=== PATIENT | male | born 2000 | race Caucasian/White ===

== ENCOUNTER 2020-01-07 17:05 | Emergency (ER) | payer OTHER ==
[~2020-01-07] VITALS: Ht 165.1 cm; Wt 47.6 kg
--- OUTSIDE RECORDS SUMMARY | ~2020-01-07 | XMS | Encounter Summary ---
Demographics + + + | Address | [address] | | | [place] [address] | + + + | Home Phone | | + + + | Preferred Language | Unknown | + + + | Marital Status | Single | + + + | Adventist Affiliation | NRP | + + + | Race | White | + + + | Ethnic Group | Not or | + + + Author + + + | Author | [facility] | + + + | Organization | [facility] | + + + | Address | [...] Team Providers + +------+ + | Care Home Health Clinician Name | Role | Phone | + +------+ + | Rich Valenzuela MD | PCP | | + +------+ + Reason for Visit + + + | Reason | Comments | + + + | Care Coordination | PA submitted for Miralax and ranitidine | + + + Encounter Details +--------+ + + + + | Date | Type | Department | Care Team | Description | +--------+ + + + + | 02/11/ | Documentati | Pediatric | Chandrika Owen MD | Care Coordination | | 2015 | on | Gastroenterology at | [address] [facility] | (PA submitted for | | | | Carl | [address] [place], | Miralax and | | | | [facility] | [place] [address] | ranitidine) | | | | [address] | [phone] | | | | | Carl | | | | | | [facility], | | | | | | [address] [place] [address] | | | | | | [place], [place] | | | | | | [address] | | | | | | [phone] | | | +--------+ + + + [...]
--- OUTSIDE RECORDS SUMMARY | ~2020-01-07 | XMS | Clinical Summary ---
Demographics + + + | Address | [address] | | | [place] [address] | + + + | Home Phone | | + + + | Preferred Language | Unknown | + + + | Marital Status | Single | + + + | Jew Affiliation | NRP | + + + | Race | White | + + + | Ethnic Group | Not or | + + + Author + + + | Author | [facility] | + + + | Organization | [facility] | + + + | Address | Unknown | + + + | Phone | Unavailable | + + + Support + + +---------+ + | Name | Relationship | Address | Phone | + + +---------+ + | Kirby Forde | ECON | Unknown | | + + +---------+ + | Marvin | ECON | Unknown | | + + +---------+ + Care Team Providers + +------+ + | Care Machining Engineer Name | Role | Phone | + +------+ + | Rich Valenzuela MD | PCP | | + +------+ + Source Comments SORAYA is fully live on both EpicCare Ambulatory and EpicCare InPatient.[facility] Allergies + + + + + + | Active Allergy | Reactions | Severity | Noted | Comments | | | | | Date | | + + + + + + | Hymenoptera | Edema | | 02/11/20 | | | Allergenic Extract | | | 15 | | + + + + + + Medications + + + +---------+------+------+-------+ | Medication | Sig | Dispensed | Refills | Star | End | Statu | | | | | | t | Date | s | | | | | | Date | | | + + + +---------+------+------+-------+ | naproxen 500 mg | Take 500 mg by mouth | | 0 | | | Activ | | oral tablet | two times daily. | | | | | e | + + + +---------+------+------+-------+ | | Take by mouth. | | 0 | | | Activ | | ASPIRIN/ACETAMINOPHE | | | | | | e | | N/CAFFEINE (EXCEDRIN | | | | | | | | MIGRAINE ORAL) | | | | | | | + + + +---------+------+------+-------+ | melatonin 3 mg | Take by mouth once | | 0 | | | Activ | | oral tablet | daily at bedtime. | | | | | e | + + + +---------+------+------+-------+ | Ranitidine HCl 150 | Take 1 capsule by | 62 | 3 | 08/0 | | Activ | | mg oral | mouth two times | capsule | | 3/20 | | e | | capsuleIndications: | daily. Indications: | | | 15 | | | | heartburn | HEARTBURN | | | | | | + + + +---------+------+------+-------+ | polyethylene | Take 17 g by mouth | 255 g | 5 | 08/0 | | Activ | | glycol 17 gram/dose | once daily. Ok to | | | 3/20 | | e | | oral powder | put in 8-10 oz of | | | 15 | | | | | Gatorade | | | | | | + + + +---------+------+------+-------+ Active Problems + + + | Problem | Noted Date | + + + | Periumbilical abdominal pain | 02/10/2015 | + + + + + | Overview: ICD10 | + + + + + | Abdominal pain, epigastric | 02/10/2015 | + + + | Abnormal weight loss | 02/10/2015 | + + + Family History + + +------+ + | Medical History | Relation | Name | Comments | + + +------+ + | GI | Mother | | constipation | + + +------+ + | Heart Disease | | | grandparents | + + +------+ + + +------+--------+ + | Relation | Name | Status | Comments | + +------+--------+ + | Mother | | | | + +------+--------+ + Social History + +-------+ +--------+------+ | [...] recent travel history available. | + + Last Filed Vital Signs + + + + + | Vital Sign | Reading | Time Taken | Comments | + + + + + | Blood Pressure | 123/60 | 02/10/2015 1:32 PM | | | | | PDT | | + + + + + | Pulse | 78 | 02/10/2015 1:32 PM | | | | | PDT | | + + + + + | Temperature | - | - | | + + + + + | Respiratory Rate | - | - | | + + + + + | Oxygen Saturation | - | - | | + + + + + | Inhaled Oxygen | - | - | | | Concentration | | | | + + + + + | Weight | 46.9 kg (103 lb 6.3 | 02/10/2015 1:32 PM | | | | oz) | PDT | | + + + + + | Height | 163 cm (5' 4.17") | 02/10/2015 1:32 PM | | | | | PDT | | + + + + + | Body Mass Index | 17.65 | 02/10/2015 1:32 PM | | | | | PDT | | + + + + + Plan of Treatment + + + + + | Health Maintenance | Due Date | Last Done | Comments | + + + + + | Influenza (Flu) | | | | | vaccination (#1) | 9 | | | + + + + + | Pneumococcal | Aged Out | | No longer eligible | | vaccination | | | based on patient's | | | | | age to complete this | | | | | topic | + + + + + Results Not on filefrom Last 3 Months Insurance + +--------+ +--------+ + +--------+ | Payer | Benefi | Subscriber | Effect | Phone | Address | Type | | | t Plan | ID | sergo | | | | | | / | | Dates | | | | | | Group | | | | | | + +--------+ +--------+ + +--------+ | BLUE CROSS BLUE | BCBS | xxxxxxxxxxx | 07/11/19 | [phone] | [address] | PPO | | SHIELD | OUT OF | xxx | 14-Pre | 8 | [address] | | | | STATE | | sent | | [place], | | | | | | | | [place] | | | | | | | | [address] | | + +--------+ +--------+ + +--------+ | MEDICAID [place] | OHP | [id number] | 12/16/19 | [phone] | [address] | Medica | | | PLUS | | 14-Pre | 6 | [id number] | id | | | OPEN | | sent | | [place], [place] | | | | CARD | | | | [id number] | | + +--------+ +--------+ + +--------+ + +--------+ +--------+ + + | Guarantor Name | Accoun | Relation to | Date | Phone | Billing Address | | | t Type | Patient | of | | | | | | | | | | + +--------+ +--------+ + + | KIRBY FORDE | Person | Father | [birth year] | | | al/Fam | | 1952 | [phone] | [address] [place] | | | padmini | | | 6 (Home) | [phone] | + +--------+ +--------+ + +
--- OUTSIDE RECORDS SUMMARY | ~2020-01-07 | XMS | Encounter Summary ---
Demographics + + + | Address | [address] | | | [place] [address] | + + + | Home Phone | | + + + | Preferred Language | Unknown | + + + | Marital Status | Single | + + + | Alevism Affiliation | NRP | + + + | Race | White | + + + | Ethnic Group | Not or | + + + Author + + + | Author | [facility] | + + + | Organization | [facility] | + + + | Address [...] Team Providers + +------+ + | Care In Processing Instructor Name | Role | Phone | [...] | | | Carl | [address] [place], | | | | | [facility] | [place] [address] | | | | | [address] [facility] | [phone] | | | | | Carl | | | | | | [facility], | | | | | | [address] [place] [address] | | | | | | [place], [place] | | | | | | [address] | | | | | | [phone] | | | +--------+ + + + [...]
--- OUTSIDE RECORDS SUMMARY | ~2020-01-07 | XMS | Encounter Summary ---
Demographics + + + | Address | [address] | | | [place] [address] | + + + | Home Phone | | + + + | Preferred Language | Unknown | + + + | Marital Status | Single | + + + | Jain Affiliation | NRP | + + + | Race | White | + + + | Ethnic Group | Not or | + + + Author + + + | Author | [facility] | + + + | Organization | [facility] | + + + | Address | [...] Team Providers + +------+ + | Care Mine Surveyor Name | Role | Phone | + [...] | | | Carl | [address] [place], | | | | | [facility] | [place] [address] | | | | | [address] [facility] | [phone] | | | | | Carl | | | | | | [facility], | | | | | | [address] [place] [address] | | | | | | [place], [place] | | | | | | [address] | | | | | | [phone] | | | +--------+ + + + [...]
--- OUTSIDE RECORDS SUMMARY | ~2020-01-07 | XMS | Encounter Summary ---
Demographics + + + | Address | [address] | | | [place] [address] | + + + | Home Phone | | + + + | Preferred Language | Unknown | + + + | Marital Status | Single | + + + | Moravian Affiliation | NRP | + + + [...] Team Providers + +------+ + | Care Maintenance Mechanic Elevators Name | Role | Phone | + [...] + + | 05/01/ | Hospital | [facility] [address] | Chandrika Owen MD | | | 2015 | Encounter | [address] | [address] | | | | | [id number] | [address] Doe [facility] | | | | | [facility] | [place] [address] | | | | | [facility] | [phone] | | | | | [place], [place] [facility] | | | | | | [phone] | | | +--------+ + + + [...]
--- OUTSIDE RECORDS SUMMARY | ~2020-01-07 | XMS | Encounter Summary ---
Demographics + + + | Address | [address] | | | [place] [address] | + + + | Home Phone | | + + + | Preferred Language | Unknown | + + + | Marital Status | Single | + + + | Jehovah'S Witness Affiliation | NRP | + + + [...] Team Providers + +------+ + | Care Longshore Equipment Operator Name | Role | Phone | + [...] | ogy | pain, | [address] [facility] | [place] | | | | | epigastric | [place] | Carl | | | | | Procedures | [address] | Children's | | | | | REQUEST TO | [place], [place] | [address] | | | | | SURGERY | [address] | floor | | | | | FINANCIAL HEALTH COUNSELOR | Phone: | [place], [place] | | | | | [place] UPPER GI | [phone] | [address] | | | | | ENDOSCOPY,BI | Fax: | Phone: | | | | | OPSY | [phone] | [phone] | | | | | | | Fax: | | | | | | | [phone] | +--------+--------+ + + + + Reason [...] | | | [address] | [address] [place], | | | | | [facility] | [place] [address] | | | | | [address] [place] | [phone] | | | | | Doercatyechmaninder | | | | | | [facility], | | | | | | 7th floor | | | | | | [place], [place] | | | | | | [address] | | | | | | [phone] | | | +--------+ + + + [...]
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
--- OUTSIDE RECORDS SUMMARY | ~2020-01-07 | XMS | Encounter Summary ---
Demographics + + + | Address | [address] | | | [place] [address] | + + + | Home Phone [...] Author + + + | Author | [facility] | + + + | Organization | [facility] | + + + | Address [...] Team Providers + +------+ + | Care Topographical Surveyor Name | Role | Phone | [...] | | | | Hosp-Lobby Admitting | [place], [place] | | | | | Desk Once | [address] | | | | | admitted, go to the | [phone] | | | | | 8th floor Surgical | | | | | | Desk Located at the | | | | | | [address] | | | | | | [address] [place], | | | | | | [place] [address] | | | +--------+ + + + [...]
--- OUTSIDE RECORDS SUMMARY | ~2020-01-07 | XMS | Encounter Summary ---
Demographics + + + | Address | [address] | | | [place] [address] | + + + | Home Phone | | + + + | Preferred Language | Unknown | + + + | Marital Status | Single | + + + | Sikhism Affiliation | NRP | + + + | Race | White | + + + | Ethnic Group | Not or | + + + Author + + + | Author | [facility] | + + + | Organization | [facility] | + + + | [...] Team Providers + +------+ + | Care Access Control Specialist Name | Role | Phone | + [...] on | Gastroenterology at | [address] [facility] | (PA submitted for | | | | Carl | [address] [place], | Miralax and | | | | [facility] | [place] [address] | ranitidine) | | | | [address] | [phone] | | | | | Carl | | | | | | [facility], | | | | | | [address] [place] [address] | | | | | | [place], [place] | | | | | | [address] | | | | | | [phone] | | | +--------+ + + + [...]
--- OUTSIDE RECORDS SUMMARY | ~2020-01-07 | XMS | Encounter Summary ---
Demographics + + + | Address | [address] | | | [place] [address] | + + + | Home Phone | | + + + | Preferred Language | Unknown | + + + | Marital Status | Single | + + + | Anglican Affiliation | NRP | + + + | Race | White | + + + | Ethnic Group | Not or | + + + Author + + + | Author | [facility] | + + + | Organization | [facility] | + + + | Address [...] Team Providers + +------+ + | Care Barrel Rib Matting Machine Operator Name | Role | Phone [...] | | epigastric | | | | [facility] | | | | | | [address] [facility] | | | | | | Carl | | | | | | [facility] | | | | | | 7th [facility], | | | | | | [place] [address] | | | | | | [phone] | | | +--------+------+ + + + [...] [facility] | [address] | [place] [address] | | | JOHN YING | [place] [...] [facility] | [address] | [place] [address] | | | SERVICES, CORE | PARK [...] | + + + + + | [facility] | [address] | [place] [address] | | | SERVICES, CORE | [place] [...] [facility] | [address] | [place] [address] | | | SERVICES, CORE | PARK [...] | + + + + + | [facility] | [address] [facility] | [place] [address] | | | SERVICES, CORE | PARK [...] | | | | | or less: [id number] | | | | | | Units: Weak [id number] | | | | | | Units [...] by | | | | | | [address] | | | | | | Sachin Gutierrez [facility] | | | | | | [address] | | | | | | [phone].[employer]. | | | | | | Robb [...] [facility] | [address] | [place], [place] | | | [facility] | | [address] | | + + + + + [...] + | [facility] | [address] | [place] [address] | | | [place] | | | | + + + + + documented in this encounter Visit Diagnoses + + | Diagnosis | + + | Abdominal pain, epigastric | + + documented in this encounter"
--- OUTSIDE RECORDS SUMMARY | ~2020-01-07 | XMS | Encounter Summary ---
Demographics + + + | Address | [address] | | | [place] [address] | + + + | Home Phone | | + + + | Preferred Language | Unknown | + + + | Marital Status | Single | + + + | Spiritism Affiliation | NRP | + + + | Race | White | + + + | Ethnic Group | Not or | + + + Author + + + | Author | [facility] | + + + | Organization | [facility] | + + + | Address | [...] Team Providers + +------+ + | Care Machine Set Up Name | Role | Phone | + [...] | | Gastroenterology at | [address] [facility] | scheduling) | | | | [address] | [address] [place], | | | | | [facility] | [place] [address] | | | | | [address] [facility] | [phone] | | | | | Carl | | | | | | [facility], | | | | | | 7th floor | | | | | | [place], [place] | | | | | | [address] | | | | | | [phone] | | | +--------+ + + + [...]
--- OUTSIDE RECORDS SUMMARY | ~2020-01-07 | XMS | Encounter Summary ---
Demographics + + + | Address | [address] | | | [place] [address] | + + + | Home Phone [...] Author + + + | Author | [facility] | + + + | Organization | [facility] | + + + | Address [...] Team Providers + +------+ + | Care School Crossing Guard Supervisor Name | Role | Phone | [...] | | | | | | [address] [facility] | | | | | | Carl | | | | | | [facility] | | | | | | 7th [facility], | | | | | | [place] [address] | | | | | | [phone] | | | +--------+------+ + + + [...] [facility] | [address] | [place] [address] | | | JOHN YING | [place] [...] [facility] | [address] | [place] [address] | | | SERVICES, CORE | PARK [...] | + + + + + | [facility] | [address] | [place] [address] | | | SERVICES, CORE | [place] [...] [facility] | [address] | [place] [address] | | | SERVICES, CORE | PARK [...] | + + + + + | [facility] | [address] [facility] | [place] [address] | | | SERVICES, CORE | PARK [...] | | | | | or less: [id number] | | | | | | Units: Weak [id number] | | | | | | Units [...] by | | | | | | [address] | | | | | | Sachin Gutierrez [facility] | | | | | | [address] | | | | | | [phone].[employer]. | | | | | | Robb [...] [facility] | [address] | [place], [place] | | | [facility] | | [address] | | + + + + + [...] + | [facility] | [address] | [place] [address] | | | [place] | | | | + + + + + documented in this encounter Visit Diagnoses + + | Diagnosis | + + | Abdominal pain, epigastric | + + documented in this encounter"
--- OUTSIDE RECORDS SUMMARY | ~2020-01-07 | XMS | Encounter Summary ---
Demographics + + + | Address | [address] | | | [place] [address] | + + + | Home Phone [...] Author + + + | Author | [facility] | + + + | Organization | [facility] | + + + | [...] Team Providers + +------+ + | Care Comb Fixer Name | Role | Phone | + [...] | | Gastroenterology at | [address] [facility] | (cont'd stomach | | | | Carl | [address] [place], | pain) | | | | [facility] | [place] [address] | | | | | [address] | [phone] | | | | | Carl | | | | | | [facility], | | | | | | [address] [place] [address] | | | | | | [place], [place] | | | | | | [address] | | | | | | [phone] | | | +--------+ + + + [...]
--- OUTSIDE RECORDS SUMMARY | ~2020-01-07 | XMS | Encounter Summary ---
Demographics + + + | Address | [address] | | | [place] [address] | + + + | Home Phone [...] Team Providers + +------+ + | Care Team Foreman Name | Role | Phone | + [...] | | Gastroenterology at | [address] [facility] | scheduling) | | | | [address] | [address] [place], | | | | | [facility] | [place] [address] | | | | | [address] [facility] | [phone] | | | | | Carl | | | | | | [facility], | | | | | | 7th floor | | | | | | [place], [place] | | | | | | [address] | | | | | | [phone] | | | +--------+ + + + [...]
--- OUTSIDE RECORDS SUMMARY | ~2020-01-07 | XMS | Encounter Summary ---
Demographics + + + | Address | [address] | | | [place] [address] | + + + | Home Phone [...] Author + + + | Author | [facility] | + + + | Organization | [facility] | + + + | [...] Team Providers + +------+ + | Care Counter Professional Name | Role | Phone | + [...] + + | 05/01/ | Hospital | [facility] [address] | Chandrika Owen MD | | | 2015 | Encounter | [address] | [address] | | | | | [id number] | [address]imi Doe [facility] | | | | | [facility] | [place] [address] | | | | | [facility] | [phone] | | | | | [place], [place] [facility] | | | | | | [phone] | | | +--------+ + + + [...]
--- OUTSIDE RECORDS SUMMARY | ~2020-01-07 | XMS | Clinical Summary ---
Demographics + + + | Address | [address] | | | [place] [address] | + + + | Home Phone | | + + + | Preferred Language | Unknown | + + + | Marital Status | Single | + + + | Orthodox Affiliation | NRP | + + + | Race | White | + + + | Ethnic Group | Not or | + + + Author + + + | Author | [facility] | + + + | Organization | [facility] | + + + | Address [...] Team Providers + +------+ + | Care Canning Machine Operator Name | Role | Phone | + +------+ + | Rich Valenzuela MD | PCP | | + +------+ + Source Comments SORAYA is fully live on both EpicCare Ambulatory and EpicCare InPatient.Formerly [facility], [facility] & [facility] Allergies + + + + + + [...] | BCBS | xxxxxxxxxxx | 07/11/19 | [phone] | [address] | PPO | | SHIELD | OUT OF | xxx | 14-Pre | 8 | [address] | | | | STATE | | sent | | [place], | | | | | | | | [place] | | | | | | | | [address] | | + +--------+ +--------+ + +--------+ | MEDICAID [place] | OHP | [email or web address] | 12/16/19 | [phone] | [address] | Medica | | | PLUS | | 14-Pre | 6 | [address] | id | | | OPEN | | sent | | [place], [place] | | | | CARD | | | | [address] | | + +--------+ +--------+ + +--------+ [...] padmini | | | 6 (Home) | [id number] | + +--------+ +--------+ + +
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
--- OUTSIDE RECORDS SUMMARY | ~2020-01-07 | XMS | Encounter Summary ---
Demographics + + + | Address | [address] | | | [place] [address] | + + + | Home Phone | | + + + | Preferred Language | Unknown | + + + | Marital Status | Single | + + + | Taoism Affiliation | NRP | + + + | Race | White | + + + | Ethnic Group | Not or | + + + Author + + + | Author | [facility] | + + + | Organization | [facility] | + + + | Address | [...] Team Providers + +------+ + | Care Forensic Manager Name | Role | Phone | + [...] | ogy | pain, | [address] [facility] | [place] | | | | | epigastric | [place] | [place] | | | | | Procedures | Yeimi [address] | Children's | | | | | REQUEST TO | [place], [place] | [address] | | | | | SURGERY | [address] | floor | | | | | SENIOR BACKUP ADMINISTRATOR | Phone: | [place], [place] | | | | | [place] [facility]PP[facility] GI | [phone] | [phone] | | | | | ENDOSCOPY,BI | Fax: | Phone: | | | | | OPSY | [phone] | [phone] | | | | | | | Fax: | | | | | | | [phone] | +--------+--------+ + + + + Reason [...] Orders | Gastroenterology at | [address] [place] | | | | | [place] | [address] [place], | | | | | [facility] | [place] [address] | | | | | [address] | [phone] | | | | | [place] | | | | | | [facility], | | | | | | 7th floor | | | | | | [place], [place] | | | | | | [address] | | | | | | [phone] | | | +--------+ + + + [...]
--- OUTSIDE RECORDS SUMMARY | ~2020-01-07 | XMS | Encounter Summary ---
Demographics + + + | Address | [address] | | | [place] [address] | + + + | Home Phone | | + + + | Preferred Language | Unknown | + + + | Marital Status | Single | + + + | Sabianist Affiliation | NRP | + + + [...] Phone | + + +---------+ + | Rnoey Forde | ECON | Unknown | | + + +---------+ + | Marvin | ECON | Unknown | | + + +---------+ + Care Team Providers + +------+ + | Care Oil Filters Inspector Name | Role | Phone | + [...] | | Gastroenterology at | [address] | (cont'd stomach | | | | [place] | [address] [place], | pain) | | | | [facility] | [place] [address] | | | | | [address] | [phone] | | | | | [place] | | | | | | [facility], | | | | | | [address] [place] [address] | | | | | | [place], [place] | | | | | | [address] | | | | | | [phone] | | | +--------+ + + + [...]
--- OUTSIDE RECORDS SUMMARY | ~2020-01-07 | XMS | Encounter Summary ---
Demographics + + + | Address | [address] | | | [place] [address] | + + + | Home Phone [...] + + + | Author | [facility] | + + + | Organization | [facility] | + + + | [...] Team Providers + +------+ + | Care Lawnmower Repair Mechanic Name | Role | Phone | + [...] | | | | Hosp-Lobby Admitting | [place], [place] | | | | | Desk Once | [address] | | | | | admitted, go to the | [phone] | | | | | 8th floor Surgical | | | | | | Desk Located at the | | | | | | [address] [place] | | | | | | [address] [place], | | | | | | [place] [address] | | | +--------+ + + + [...]
[2020-01-07] MEDS ORDERED: RISPERIDONE2 MG PO (17:17)
[2020-01-07] MEDS ORDERED: SERTRALINE HCL50 MG PO (17:17)
== END 2020-01-07 18:20 | disposition home or self-care (01) ==
LOC: ED 17:05
DX: R10.9 Unspecified abdominal pain (principal)

== ENCOUNTER 2020-01-18 22:04 | Emergency (ER) | payer OTHER ==
[~2020-01-18] VITALS: Ht 165.1 cm; Wt 47.6 kg
--- OUTSIDE RECORDS SUMMARY | ~2020-01-18 | XMS | Encounter Summary ---
Demographics + + + | Address | [address] | | | [place] [address] | + + + | Home Phone | | + + + | Preferred Language | Unknown | + + + | Marital Status | Single | + + + | Confucianist Affiliation | NRP | + + + | Race | White | + + + | Ethnic Group | Not or | + + + Author + + + | Author | [facility] | + + + | Organization | [facility] | + + + | Address | Unknown | + + + | Phone | Unavailable | + + + Support + + +---------+ + | Name | Relationship | Address | Phone | + + +---------+ + | Roney Forde | ECON | Unknown | | + + +---------+ + | Marvin | ECON | Unknown | | + + +---------+ + Care Team Providers + +------+ + | Care Server Developer Name | Role | Phone | + +------+ + | Rich Valenzuela MD | PCP | | + +------+ + Encounter Details +--------+------+ + + + | Date | Type | Department | Care Team | Description | +--------+------+ + + + | 02/10/ | Lab | Lab Center at | | Abdominal pain, | | 2014 | | [place] | | epigastric | | | | [facility] | | | | | | [address] [facility] | | | | | | [place] | | | | | | [facility] | | | | | | [address] [facility], | | | | | | [place] [address] | | | | | | [phone] | | | +--------+------+ + + + Social History + +-------+ +--------+------+ | Tobacco Use | Types | Packs/Day | Years | Date | | | | | Used | | + +-------+ +--------+------+ | Passive Smoke | | | | | | Exposure - Never | | | | | | Smoker | | | | | + +-------+ +--------+------+ + +---+---+---+ | Smokeless Tobacco: | | | | | Current User | | | | + +---+---+---+ + + +---------+ + | Alcohol Use | Drinks/Week | oz/Week | Comments | + + +---------+ + | Not Asked | | | | + + +---------+ + + + + | Sex Assigned at | Date Recorded | | | | + + + | Not on file | | + + + + + + + | Job Start Date | Occupation | Industry | + + + + | Not on file | Not on file | Not on file | + + + + + + + + | Travel History | Travel Start | Travel End | + + + + + + | No recent travel history available. | + + documented as of this encounter Plan of Treatment Not on filedocumented as of this encounter Procedures + +--------+ + + + | Procedure Name | Priori | Date/Time | Associated Diagnosis | Comments | | | ty | | | | + +--------+ + + + | CBC AND AUTO DIFF | Routin | 02/10/2015 | Abdominal pain, | Results for this | | | e | 2:28 PM | epigastric | procedure are in the | | | | PDT | | results section. | + +--------+ + + + | CBC, WITH | Routin | 02/10/2015 | Abdominal pain, | Results for this | | DIFFERENTIAL | e | 2:28 PM | epigastric | procedure are in the | | | | PDT | | results section. | + +--------+ + + + | TISSUE | Routin | 02/10/2015 | Abdominal pain, | Results for this | | TRANSGLUTAMINASE | e | 2:28 PM | epigastric | procedure are in the | | IGA, SERUM | | PDT | | results section. | + +--------+ + + + | COMPLETE METABOLIC | Routin | 02/10/2015 | Abdominal pain, | Results for this | | SET | e | 2:28 PM | epigastric | procedure are in the | | (NA,K,CL,CO2,BUN,CRE | | PDT | | results section. | | AT,GLUC,CA,AST,ALT,B | | | | | | KHARI TOTAL,ALK | | | | | | PHOS,ALB,PROT TOTAL) | | | | | + +--------+ + + + | IGA, SERUM | Routin | 02/10/2015 | Abdominal pain, | Results for this | | | e | 2:28 PM | epigastric | procedure are in the | | | | PDT | | results section. | + +--------+ + + + | SEDIMENTATION RATE | Routin | 02/10/2015 | Abdominal pain, | Results for this | | | e | 2:28 PM | epigastric | procedure are in the | | | | PDT | | results section. | + +--------+ + + + | GGT, PLASMA | Routin | 02/10/2015 | Abdominal pain, | Results for this | | | e | 2:28 PM | epigastric | procedure are in the | | | | PDT | | results section. | + +--------+ + + + | LIPASE, PLASMA | Routin | 02/10/2015 | Abdominal pain, | Results for this | | | e | 2:28 PM | epigastric | procedure are in the | | | | PDT | | results section. | + +--------+ + + + documented in this encounter Results CBC AND AUTO DIFF (02/10/2015 2:28 PM PDT) + + + + + + | Component | Value | Ref Range | Performed | Pathologist | | | | | At | Signature | + + + + + + | WHITE CELL | 8.78 | 4.90 - 15.50 | [facility] | | | COUNT | | K/cu mm | LABORATORY | | | | | | SERVICES, | | | | | | CORE | | + + + + + + | RED CELL | 4.57 | 4.50 - 5.30 | [facility] | | | COUNT | | M/cu mm | LABORATORY | | | | | | SERVICES, | | | | | | CORE | | + + + + + + | HEMOGLOBIN | 13.6 | 13.0 - 16.0 | [facility] | | | | | g/dL | LABORATORY | | | | | | SERVICES, | | | | | | CORE | | + + + + + + | HEMATOCRIT | 41.7 | 37.0 - 49.0 % | [facility] | | | | | | LABORATORY | | | | | | SERVICES, | | | | | | CORE | | + + + + + + | MCV | 91.2 | 80.0 - 96.0 fL | [facility] | | | | | | LABORATORY | | | | | | SERVICES, | | | | | | CORE | | + + + + + + | MCHC | 32.6 | 33.0 - 35.5 | [facility] | | | | | g/dL | LABORATORY | | | | | | SERVICES, | | | | | | CORE | | + + + + + + | RDW SD | 41.1 | 35.1 - 46.3 fL | [facility] | | | | | | LABORATORY | | | | | | SERVICES, | | | | | | CORE | | + + + + + + | PLATELET | 244 | 150 - 400 K/cu | [facility] | | | COUNT | | mm | LABORATORY | | | | | | SERVICES, | | | | | | CORE | | + + + + + + | MPV | 9.7 | 9.7 - 12.3 fL | [facility] | | | | | | LABORATORY | | | | | | SERVICES, | | | | | | CORE | | + + + + + + | NRBC% | 0.0 | 0.0 - 0.3 % | [facility] | | | | | | LABORATORY | | | | | | SERVICES, | | | | | | CORE | | + + + + + + | NRBC# | 0.00 | 0.00 - 0.02 | [facility] | | | | | K/cu mm | LABORATORY | | | | | | SERVICES, | | | | | | CORE | | + + + + + + | NEUTROPHIL | 44.7 | 41.0 - 76.0 % | [facility] | | | % | | | LABORATORY | | | | | | SERVICES, | | | | | | CORE | | + + + + + + | LYMPHOCYTE | 41.5 (H) | 7.0 - 41.0 % | [facility] | | | % | | | LABORATORY | | | | | | SERVICES, | | | | | | CORE | | + + + + + + | MONOCYTE % | 9.3 | 3.0 - 13.0 % | [facility] | | | | | | LABORATORY | | | | | | SERVICES, | | | | | | CORE | | + + + + + + | EOS % | 3.3 | 0.0 - 6.0 % | [facility] | | | | | | LABORATORY | | | | | | SERVICES, | | | | | | CORE | | + + + + + + | BASO % | 0.7 | 0.0 - 2.0 % | [facility] | | | | | | LABORATORY | | | | | | SERVICES, | | | | | | CORE | | + + + + + + | IG% | 0.5Comment: Immature | 0.0 - 0.6 % | [facility] | | | | Granulocytes (IG) | | LABORATORY | | | | include metamyelocytes, | | SERVICES, | | | | myelocytes and | | CORE | | | | promyelocytes. Bands | | | | | | are not included in the | | | | | | IG count. Bands are | | | | | | included in the | | | | | | neutrophil count. | | | | + + + + + + | NEUTROPHIL | 3.93 | 2.80 - 11.10 | [facility] | | | # | | K/cu mm | LABORATORY | | | | | | SERVICES, | | | | | | CORE | | + + + + + + | LYMPHOCYTE | 3.64 (H) | 0.40 - 3.20 | [facility] | | | # | | K/cu mm | LABORATORY | | | | | | SERVICES, | | | | | | CORE | | + + + + + + | MONOCYTE # | 0.82 | 0.30 - 1.30 | [facility] | | | | | K/cu mm | LABORATORY | | | | | | SERVICES, | | | | | | CORE | | + + + + + + | EOS # | 0.29 | 0.00 - 0.30 | [facility] | | | | | K/cu mm | LABORATORY | | | | | | SERVICES, | | | | | | CORE | | + + + + + + | BASO # | 0.06 | 0.00 - 0.20 | [facility] | | | | | K/cu mm | LABORATORY | | | | | | SERVICES, | | | | | | CORE | | + + + + + + | IG# | 0.04 (H) | 0.00 - 0.03 | [facility] | | | | | K/cu mm | LABORATORY | | | | | | SERVICES, | | | | | | CORE | | + + + + + + + + | Specimen | + + | Blood - Blood | + + + + + | Narrative | Performed At | + + + | Immature Granulocytes (IG) include metamyelocytes, myelocytes | [facility] | | and promyelocytes. Bands are not included in the IG count. Bands are | LABORATORY | | included in the neutrophil count. | [facility] | + + + + + + + + | Performing | Address | City/State/Zipcode | Phone Number | | Organization | | | | + + + + + | [facility] | [address] | [place] [address] | | | [facility] | [address] | | | + + + + + GGT, PLASMA (02/10/2015 2:28 PM PDT) + +-------+ + + + | Component | Value | Ref Range | Performed | Pathologist | | | | | At | Signature | + +-------+ + + + | GAMMA | 16 | <=98 U/L | [facility] | | | GLUTAMYL | | | LABORATORY | | | TRANS | | | SERVICES, | | | | | | CORE | | + +-------+ + + + + + | Specimen | + + | Blood - Blood | + + + + + + + | Performing | Address | City/State/Zipcode | Phone Number | | Organization | | | | + + + + + | [facility] | [address] | [place] [address] | | | SERVICES, CORE | [address] | | | + + + + + COMPLETE METABOLIC SET (NA,K,CL,CO2,BUN,CREAT,GLUC,CA,AST,ALT,BILI TOTAL,ALK PHOS,ALB,PROT TOTAL) (02/10/2015 2:28 PM PDT) + + + + + + | Component | Value | Ref Range | Performed | Pathologist | | | | | At | Signature | + + + + + + | GLUCOSE, | 70 | 60 - 99 mg/dL | [facility] | | | PLASMA | | | LABORATORY | | | (LAB) | | | SERVICES, | | | | | | CORE | | + + + + + + | BUN, PLASMA | 11 | 6 - 20 mg/dL | [facility] | | | (LAB) | | | LABORATORY | | | | | | SERVICES, | | | | | | CORE | | + + + + + + | CREATININE | 0.90 (H) | 0.46 - 0.81 | [facility] | | | PLASMA | | mg/dL | LABORATORY | | | (LAB) | | | SERVICES, | | | | | | CORE | | + + + + + + | SODIUM, | 142 | 136 - 145 | [facility] | | | PLASMA | | mmol/L | LABORATORY | | | (LAB) | | | SERVICES, | | | | | | CORE | | + + + + + + | POTASSIUM, | 3.9 | 3.4 - 5.0 | [facility] | | | PLASMA | | mmol/L | LABORATORY | | | (LAB) | | | SERVICES, | | | | | | CORE | | + + + + + + | CHLORIDE, | 109 (H) | 97 - 108 mmol/L | [facility] | | | PLASMA | | | LABORATORY | | | (LAB) | | | SERVICES, | | | | | | CORE | | + + + + + + | TOTAL CO2, | 27 | 21 - 32 mmol/L | [facility] | | | PLASMA | | | LABORATORY | | | (LAB) | | | SERVICES, | | | | | | CORE | | + + + + + + | CALCIUM, | 8.6 | 8.6 - 10.2 | [facility] | | | PLASMA | | mg/dL | LABORATORY | | | (LAB) | | | SERVICES, | | | | | | CORE | | + + + + + + | BILIRUBIN | 0.1 (L) | 0.3 - 1.2 mg/dL | [facility] | | | TOTAL | | | LABORATORY | | | | | | SERVICES, | | | | | | CORE | | + + + + + + | TOTAL | 7.4 | 6.2 - 8.5 g/dL | [facility] | | | PROTEIN, | | | LABORATORY | | | PLASMA | | | SERVICES, | | | (LAB) | | | CORE | | + + + + + + | ALBUMIN, | 4.1 | 3.5 - 4.7 g/dL | [facility] | | | PLASMA | | | LABORATORY | | | (LAB) | | | SERVICES, | | | | | | CORE | | + + + + + + | ALK PHOS | 91 | 55 - 220 U/L | [facility] | | | | | | LABORATORY | | | | | | SERVICES, | | | | | | CORE | | + + + + + + | AST(SGOT) | 18 | <=36 U/L | [facility] | | | | | | LABORATORY | | | | | | SERVICES, | | | | | | CORE | | + + + + + + | ALT (SGPT) | 18 | <=60 U/L | [facility] | | | | | | LABORATORY | | | | | | SERVICES, | | | | | | CORE | | + + + + + + | ANION | 5 | 4 - 11 mmol/L | [facility] | | | GAP(ALB | | | LABORATORY | | | CORRECTED) | | | SERVICES, | | | | | | CORE | | + + + + + + | POTASSIUM | No Hemo | | [facility] | | | CMNT | | | LABORATORY | | | | | | SERVICES, | | | | | | CORE | | + + + + + + | BILI T CMNT | No Hemo | | [facility] | | | | | | LABORATORY | | | | | | SERVICES, | | | | | | CORE | | + + + + + + | AST CMNT | No Hemo | | [facility] | | | | | | LABORATORY | | | | | | SERVICES, | | | | | | CORE | | + + + + + + | ANION GAP | 6 | mmol/L | [facility] | | | | | | LABORATORY | | | | | | SERVICES, | | | | | | CORE | | + + + + + + + + | Specimen | + + | Blood - Blood | + + + + + + + | Performing | Address | City/State/Zipcode | Phone Number | | Organization | | | | + + + + + | [facility] | [address] | [place] [address] | | | SERVICES, CORE | [address] | | | + + + + + LIPASE, PLASMA (02/10/2015 2:28 PM PDT) + +-------+ + + + | Component | Value | Ref Range | Performed | Pathologist | | | | | At | Signature | + +-------+ + + + | LIPASE | 129 | 118 - 277 U/L | [facility] | | | (LAB) | | | LABORATORY | | | | | | SERVICES, | | | | | | CORE | | + +-------+ + + + + + | Specimen | + + | Blood - Blood | + + + + + + + | Performing | Address | City/State/Zipcode | Phone Number | | Organization | | | | + + + + + | [facility] | [address] | [place] [address] | | | SERVICES, CORE | [address] | | | + + + + + SEDIMENTATION RATE (02/10/2015 2:28 PM PDT) + +-------+ + + + | Component | Value | Ref Range | Performed | Pathologist | | | | | At | Signature | + +-------+ + + + | SEDIMENTATI | 3 | 0 - 15 mm/hr | [facility] | | | ON RATE | | | LABORATORY | | | | | | SERVICES, | | | | | | CORE | | + +-------+ + + + + + | Specimen | + + | Blood - Blood | + + + + + + + | Performing | Address | City/State/Zipcode | Phone Number | | Organization | | | | + + + + + | [facility] | [address] | [place] [address] | | | SERVICES, CORE | [address] | | | + + + + + TISSUE TRANSGLUTAMINASE IGA, SERUM (02/10/2015 2:28 PM PDT) + + + + + + | Component | Value | Ref Range | Performed | Pathologist | | | | | At | Signature | + + + + + + | TTG, IGA | 4Comment: INTERPRETIVE | 0 - 19 Units | [facility] | | | | INFORMATION: Tissue | | REG UNIV | | | | Transglutaminase (tTG) | | PTH - [facility] | | | | Antibody, IgA 19 Units | | | | | | or less: [id number] | | | | | | Units: Weak [id number] | | | | | | Units or greater: | | | | | | Moderate to Strong | | | | | | Positive Presence of the | | | | | | tissue transglutaminase | | | | | | (tTG) IgA antibody is | | | | | | associated with | | | | | | gluten-sensitive | | | | | | enteropathies such as | | | | | | celiac disease and | | | | | | dermatitis | | | | | | herpetiformis. tTG IgA | | | | | | antibody concentrations | | | | | | greater than or equal to | | | | | | 100 Units usually | | | | | | correlate with results | | | | | | of duodenal biopsies | | | | | | consistent with a | | | | | | diagnosis of celiac | | | | | | disease. For antibody | | | | | | concentrations greater | | | | | | than 20 Units but less | | | | | | than 100 Units, | | | | | | additional testing for | | | | | | endomysial (NANI) IgA | | | | | | concentrations may | | | | | | improve the positive | | | | | | predictive value for | | | | | | disease.Performed by | | | | | | Archive,[address] | | | | | | [address] [facility] [place] | | | | | | [address] | | | | | | [phone].[facility] | | | | | | Robb [place], | | | | | | , Lab. Director | | | | + + + + + + + + | Specimen | + + | Blood - Blood | + + + + + + + | Performing | Address | City/State/Zipcode | Phone Number | | Organization | | | | + + + + + | [facility] | [address] | [place], [place] | | | UNIV P[facility] | | [address] | | + + + + + IGA, SERUM (02/10/2015 2:28 PM PDT) + +-------+ + + + | Component | Value | Ref Range | Performed | Pathologist | | | | | At | Signature | + +-------+ + + + | IGA SERUM | 140 | 70 - 400 mg/dL | [facility] | | | | [facility] | | | | | | [place] | | + +-------+ + + + + + | Specimen | + + | Blood - Blood | + + + + + + + | Performing | Address | City/State/Zipcode | Phone Number | | Organization | | | | + + + + + | [facility] | [address] | [place] [address] | | | [place] | | | | + + + + + documented in this encounter Visit Diagnoses + + | Diagnosis | + + | Abdominal pain, epigastric | + + documented in this encounter"
--- OUTSIDE RECORDS SUMMARY | ~2020-01-18 | XMS | Encounter Summary ---
Demographics + + + | Address | [address] | | | [place] [address] | + + + | Home Phone | | + + + | Preferred Language | Unknown | + + + | Marital Status | Single | + + + | Samaritan Affiliation | NRP | + + + | Race | White | + + + | Ethnic Group | Not or | + + + Author + + + | Author | [facility] | + + + | Organization | [facility] | + + + | Address [...] Team Providers + +------+ + | Care Administrative Court Justice Name | Role | Phone | + +------+ + | Rich Valenzuela MD | PCP | | + +------+ + Reason for Visit +--------+ + | Reason | Comments | +--------+ + | Other | Procedure scheduling | +--------+ + Encounter Details +--------+ + + + + | Date | Type | Department | Care Team | Description | +--------+ + + + + | 04/18/ | Telephone | Pediatric | Chandrika Owen MD | Other (Procedure | | 2014 | | Gastroenterology at | [address] [facility] [address] | scheduling) | | | | [place] | [address] [place], | | | | | [facility] | [place] [address] | | | | | [address] [facility] | [phone] | | | | | [place] | | | | | | [facility], | | | | | | 7th floor | | | | | | [place], [place] | | | | | | [address] | | | | | | [phone] | | | +--------+ + + + + Social History + +-------+ [...] Not on filedocumented as of this encounter Visit Diagnoses Not on filedocumented in this encounter"
--- OUTSIDE RECORDS SUMMARY | ~2020-01-18 | XMS | Encounter Summary ---
Demographics + + + | Address | [address] | | | [place] [address] | + + + | Home Phone [...] Author + + + | Author | [facility] | + + + | Organization | [facility] | + + + | Address [...] Team Providers + +------+ + | Care Quality Control Auditor Name | Role | Phone | + +------+ + | Rich Valenzuela MD | PCP | | + +------+ + Encounter Details +--------+ + + + + | Date | Type | Department | Care Team | Description | +--------+ + + + + | 05/01/ | Anesthesia | [facility] | Natasha L[place], | | | 2014 | Event | [place] | [address] | | | | | [facility] | [address] | | | | | [facility] | [place], [place] | | | | | Desk Once | [address] | | | | | admitted, go to the | [phone] | | | | | 8th floor Surgical | | | | | | Desk Located at the | | | | | | [place] [address] | | | | | | [address] [place], | | | | | | [place] [address] | | | +--------+ + + + + Anesthesia Record + + + + + | Procedure Name | Responsible | Anesthesia Start | Anesthesia Stop Time | | | Anesthesiologist | Time | | + + + + + | EGD WITH BIOPSIES | | | | | (canceled) | | | | + + + + + + + | No events on file. | + + +------+ | Meds | +------+ + + + No medications | on file. | + + + + + | No agents on file. | + + + + | No blood administrations on file. | + + + + | No LDAs on file. | + + documented in this encounter Social History + +-------+ +--------+------+ | Tobacco [...]
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
--- OUTSIDE RECORDS SUMMARY | ~2020-01-18 | XMS | Encounter Summary ---
Demographics + + + | Address | [address] | | | [place] [address] | + + + | Home Phone | | + + + | Preferred Language | Unknown | + + + | Marital Status | Single | + + + | Quaker Affiliation | NRP | + + + | Race | White | + + + | Ethnic Group | Not or | + + + Author + + + | Author | [facility] | + + + | Organization | [facility] | + + + | Address [...] Team Providers + +------+ + | Care Junior Analyst Name | Role | Phone | + +------+ + | Rich Valenzuela MD | PCP | | + +------+ + Encounter Details +--------+ + + + + | Date | Type | Department | Care Team | Description | +--------+ + + + + | 02/07/ | Abstract | Pediatric | Chandrika Owen MD | | | 2014 | | Gastroenterology at | [address] | | | | | [place] | [address] [place], | | | | | [facility] | [place] [address] | | | | | [address] [facility] | [phone] | | | | | [place] | | | | | | [facility], | | | | | | [address] [place] [address] | | | | | | [place], [place] | | | | | | [address] | | | | | | [phone] | | | +--------+ + + + + Social History + +-------+ +--------+------+ | Tobacco Use | Types | Packs/Day | Years | Date | | | | | Used | | + +-------+ +--------+------+ | Never Assessed | | | | | + +-------+ +--------+------+ + + + | Sex Assigned at [...] + | CBC, WITH | Routin | 12/24/2014 | | Results for this | | DIFFERENTIAL | e | 9:45 AM | | procedure are in the | | | | PDT | | results section. | + +--------+ + + + | TISSUE | Routin | 12/24/2014 | | Results for this | | TRANSGLUTAMINASE | e | 9:41 AM | | procedure are in the | | IGA, SERUM | | PDT | | results section. | + +--------+ + + + | COMPLETE METABOLIC | Routin | 12/24/2014 | | Results for this | | SET | e | 9:41 AM | | procedure are in the | | (NA,K,CL,CO2,BUN,CRE | | PDT | | results section. | | AT,GLUC,CA,AST,ALT,B | | | | | | KHARI TOTAL,ALK | | | | | | PHOS,ALB,PROT TOTAL) | | | | | + +--------+ + + + | C-REACTIVE PROTEIN | Routin | 12/24/2014 | | Results for this | | | e | 9:41 AM | | procedure are in the | | | | PDT | | results section. | + +--------+ + + + | SEDIMENTATION RATE | Routin | 12/24/2014 | | Results for this | | | e | 9:41 AM | | procedure are in the | | | | PDT | | results section. | + +--------+ + + + documented in this encounter Results CBC, WITH DIFFERENTIAL (12/24/2014 9:45 AM PDT) + + + + + + | Component | Value | Ref Range | Performed | Pathologist | | | | | At | Signature | + + + + + + | WHITE CELL | 10.8 | 4.4 - 11.8 K/cu | NON [facility] | | | COUNT | | mm | LAB | | + + + + + + | RED CELL | 4.99 | 3.8 - 5.3 M/cu | NON [facility] | | | COUNT | | mm | LAB | | + + + + + + | HEMOGLOBIN | 15.4 | 11.1 - 15.7 | NON [facility] | | | | | g/dL | LAB | | + + + + + + | HEMATOCRIT | 45.5 | 32 - 47 % | NON [facility] | | | | | | LAB | | + + + + + + | MCV | 91.2 (A) | 73 - 91 fL | NON [facility] | | | | | | LAB | | + + + + + + | MCH | 31 | 25 - 31 pg | NON [facility] | | | | | | LAB | | + + + + + + | MCHC | 34 | 30 - 36 g/dL | NON [facility] | | | | | | LAB | | + + + + + + | PLATELET | 250 | 140 - 440 K/cu | NON [facility] | | | COUNT | | mm | LAB | | + + + + + + | NEUTROPHIL | 52.6 | 35 - 65 % | NON [facility] | | | % | | | LAB | | + + + + + + | LYMPHOCYTE | 36 | 28 - 48 % | NON [facility] | | | % | | | LAB | | + + + + + + | MONOCYTE % | 9.4 | 0 - 12 % | NON [facility] | | | | | | LAB | | + + + + + + | EOS % | 1.6 | 0 - 6 % | NON [facility] | | | | | | LAB | | + + + + + + | BASO % | 0.4 (A) | 0 - 0.2 % | NON [facility] | | | | | | LAB | | + + + + + + | RDW | 13 | 10.5 - 15 % | NON [facility] | | | | | | LAB | | + + + + + + + + | Specimen | + + | Blood - Blood | + + + +---------+ + + | Performing | Address | City/State/Zipcode | Phone Number | | Organization | | | | + +---------+ + + | NON [facility] | | | | + +---------+ + + TISSUE TRANSGLUTAMINASE IGA, SERUM (12/24/2014 9:41 AM PDT) + +-------+ + + + | Component | Value | Ref Range | Performed | Pathologist | | | | | At | Signature | + +-------+ + + + | TISSUE | 0.2 | <7 | NON [facility] | | | TRANSGLUTAM | | | LAB | | | INASE IGA | | | | | + +-------+ + + + | GLIADIN | 0.3 | <7 EU | NON [facility] | | | PEPTIDE AB, | | | LAB | | | IGA | | | | | + +-------+ + + + | GLIADIN | <0.4 | <7 EU | NON [facility] | | | PEPTIDE AB, | | | LAB | | | IGG | | | | | + +-------+ + + + + + | Specimen | + + | Blood - Blood | + + + +---------+ + + | Performing | Address | City/State/Zipcode | Phone Number | | Organization | | | | + +---------+ + + | NON [facility] | | | | + +---------+ + + COMPLETE METABOLIC SET (NA,K,CL,CO2,BUN,CREAT,GLUC,CA,AST,ALT,BILI TOTAL,ALK PHOS,ALB,PROT TOTAL) (12/24/2014 9:41 AM PDT) + +--------+ + + + | Component | Value | Ref Range | Performed | Pathologist | | | | | At | Signature | + +--------+ + + + | GLUCOSE, | 67 (A) | 70 - 100 mg/dL | NON [facility] | | | PLASMA | | | LAB | | | (LAB) | | | | | + +--------+ + + + | BUN, PLASMA | 14 | 6 - 23 mg/dL | NON [facility] | | | (LAB) | | | LAB | | + +--------+ + + + | CREATININE | 0.83 | 0.40 - 1.05 | NON [facility] | | | PLASMA | | mg/dL | LAB | | | (LAB) | | | | | + +--------+ + + + | TOTAL | 7.3 | 6.1 - 8.5 g/dL | NON [facility] | | | PROTEIN, | | | LAB | | | PLASMA | | | | | | (LAB) | | | | | + +--------+ + + + | ALBUMIN, | 4.9 | 3.5 - 5.0 g/dL | NON [facility] | | | PLASMA | | | LAB | | | (LAB) | | | | | + +--------+ + + + | CALCIUM, | 9.8 | 8.4 - 10.2 | NON [facility] | | | PLASMA | | mg/dL | LAB | | | (LAB) | | | | | + +--------+ + + + | BILIRUBIN | 0.4 | 0 - 1.2 | NON [facility] | | | TOTAL | | Transcutaneous | LAB | | | | | Bilirubinometer | | | + +--------+ + + + | ALK PHOS | 81 (A) | 135 - 384 U/L | NON [facility] | | | | | | LAB | | + +--------+ + + + | AST(SGOT) | 18 | 13 - 39 U/L | NON [facility] | | | | | | LAB | | + +--------+ + + + | SODIUM, | 139 | 132 - 143 | NON [facility] | | | PLASMA | | mmol/L | LAB | | | (LAB) | | | | | + +--------+ + + + | POTASSIUM, | 3.8 | 3.6 - 5.1 | NON [facility] | | | PLASMA | | mmol/L | LAB | | | (LAB) | | | | | + +--------+ + + + | CHLORIDE, | 103 | 95 - 112 mmol/L | NON [facility] | | | PLASMA | | | LAB | | | (LAB) | | | | | + +--------+ + + + | TOTAL CO2, | 25 | 19 - 31 mmol/L | NON [facility] | | | PLASMA | | | LAB | | | (LAB) | | | | | + +--------+ + + + | ALT (SGPT) | 12 | 7 - 52 U/L | NON [facility] | | | | | | LAB | | + +--------+ + + + | ANION GAP | 14.8 | 7 - 21 | NON [facility] | | | | | | LAB | | + +--------+ + + + | BUN/CREATIN | 16.9 | 6.0 - 28.6 | NON [facility] | | | INE RATIO | | | LAB | | + +--------+ + + + | GLOBULIN | 2.4 | 1.8 - 3.5 | NON [facility] | | | | | | LAB | | + +--------+ + + + | A/G RATIO | 2.0 | 1.1 - 2.4 | NON [facility] | | | | | | LAB | | + +--------+ + + + + + | Specimen | + + | Blood - Blood | + + + +---------+ + + | Performing | Address | City/State/Zipcode | Phone Number | | Organization | | | | + +---------+ + + | NON [facility] | | | | + +---------+ + + C-REACTIVE PROTEIN (12/24/2014 9:41 AM PDT) + +-------+ + + + | Component | Value | Ref Range | Performed | Pathologist | | | | | At | Signature | + +-------+ + + + | C-REACTIVE | <5 | 0 - 5 mg/dl | NON [facility] | | | PROTEIN | | | LAB | | + +-------+ + + + + + | Specimen | + + | Blood - Blood | + + + +---------+ + + | Performing | Address | City/State/Zipcode | Phone Number | | Organization | | | | + +---------+ + + | NON [facility] | | | | + +---------+ + + SEDIMENTATION RATE (12/24/2014 9:41 AM PDT) + +-------+ + + + | Component | Value | Ref Range | Performed | Pathologist | | | | | At | Signature | + +-------+ + + + | ESR (SED | 0 | 0 - 15 | NON [facility] | | | RATE) | | | LAB | | + +-------+ + + + + + | Specimen | + + | Blood - Blood | + + + +---------+ + + | Performing | Address | City/State/Zipcode | Phone Number | | Organization | | | | + +---------+ + + | NON [facility] | | | | + +---------+ + + documented in this encounter Visit Diagnoses Not on filedocumented in this encounter"
--- OUTSIDE RECORDS SUMMARY | ~2020-01-18 | XMS | Encounter Summary ---
Demographics + + + | Address | [address] | | | [place] [address] | + + + | Home Phone | | + + + | Preferred Language | Unknown | + + + | Marital Status | Single | + + + | Hinduism Affiliation | NRP | + + + | Race | White | + + + | Ethnic Group | Not or | + + + Author + + + | Author | [facility] | + + + | Organization | [facility] | + + + | Address [...] Team Providers + +------+ + | Care Transportation Job Titles Name | Role | Phone | + [...] on | Gastroenterology at | [address] [facility] | (PA submitted for | | | | [place] | [address] [place], | Miralax and | | | | [facility] | [place] [address] | ranitidine) | | | | [address] | [phone] | | | | | [place] | | | | | | [facility], | | | | | | [address] [place] [address] | | | | | | [place], [place] | | | | | | [address] | | | | | | [phone] | | | +--------+ + + + [...]
--- OUTSIDE RECORDS SUMMARY | ~2020-01-18 | XMS | Encounter Summary ---
Demographics + + + | Address | [address] | | | [place] [address] | + + + | Home Phone | | + + + | Preferred Language | Unknown | + + + | Marital Status | Single | + + + | Shinto Affiliation | NRP | + + + | Race | White | + + + | Ethnic Group | Not or | + + + Author + + + | Author | [facility] | + + + | Organization | [facility] | + + + | Address [...] Team Providers + +------+ + | Care Ornamental Ironworker Helper Name | Role | Phone | + +------+ + | Rich Valenzuela MD | PCP | | + +------+ + Reason for Visit AUTH/CERT +--------+--------+ + + + + | Status | Reason | Specialty | Diagnoses / | Referred By | Referred To | | | | | Procedures | Contact | Contact | +--------+--------+ + + + + | Closed | | | | | | +--------+--------+ + + + + Encounter Details +--------+ + + + + | Date | Type | Department | Care Team | Description | +--------+ + + + + | 05/01/ | Hospital | [facility] [address] | Chandrika Owen MD | | | 2015 | Encounter | [address] | [address] | | | | | [id number] | Yeimi Doe [facility] | | | | | [facility] | [place] [address] | | | | | [facility] | [phone] | | | | | [place], [place] [facility] | | | | | | [phone] | | | +--------+ + + + [...] + + documented as of this encounter Medications at Time of Discharge + + + +---------+ + + | Medication | Sig | Dispensed | Refills | Start | End Date | | | | | | Date | | + + + +---------+ + + | | Take by mouth. | | 0 | | | | ASPIRIN/ACETAMINOPHE | | | | | | | N/CAFFEINE (EXCEDRIN | | | | | | | MIGRAINE ORAL) | | | | | | + + + +---------+ + + | melatonin 3 mg | Take by mouth once | | 0 | | | | oral tablet | daily at bedtime. | | | | | + + + +---------+ + + | naproxen 500 mg | Take 500 mg by mouth | | 0 | | | | oral tablet | two times daily. | | | | | + + + +---------+ + + | polyethylene | Take 17 g by mouth | 255 g | 5 | 02/11/20 | | | glycol 17 gram/dose | once daily. Ok to | | | 15 | | | oral powder | put in 8-10 oz of | | | | | | | Gatorade | | | | | + + + +---------+ + + | Ranitidine HCl 150 | Take 1 capsule by | 62 | 3 | 02/11/20 | | | mg oral | mouth two times | capsule | | 15 | | | capsuleIndications: | daily. Indications: | | | | | | heartburn | HEARTBURN | | | | | + + + +---------+ + + documented as of this encounter Plan of Treatment Not on filedocumented as of this encounter Visit Diagnoses Not on filedocumented in this encounter"
--- OUTSIDE RECORDS SUMMARY | ~2020-01-18 | XMS | Encounter Summary ---
Demographics + + + | Address | [address] | | | [place] [address] | + + + | Home Phone | | + + + | Preferred Language | Unknown | + + + | Marital Status | Single | + + + | Baptism Affiliation | NRP | + + + | Race | White | + + + | Ethnic Group | Not or | + + + Author + + + | Author | [facility] | + + + | Organization | [facility] | + + + | Address | [...] Team Providers + +------+ + | Care Brass Buffer Name | Role | Phone | + +------+ + | Rich Valenzuela MD | PCP | | + +------+ + Reason for Referral Consult to [place] (Routine) +--------+--------+ + + + + | Status | Reason | Specialty | Diagnoses / | Referred By | Referred To | | | | | Procedures | Contact | Contact | +--------+--------+ + + + + | Closed | | Pediatric | Diagnoses | [place], | Ped Gi Lab | | | | Gastroenterol | Abdominal | Chandrika De León MD | [address] | | | | ogy | pain, | [address] [facility] | [place] | | | | | epigastric | [place] | Carl | | | | | Procedures | Yeimi Doe | Children's | | | | | REQUEST TO | [place], [place] | [address] | | | | | SURGERY | [address] | floor | | | | | TESTER FOOD PRODUCTS | Phone: | [place], [place] | | | | | DC UPPER GI | [phone] | [phone] | | | | | ENDOSCOPY,BI | Fax: | Phone: | | | | | OPSY | [phone] | [phone] | | | | | | | Fax: | | | | | | | [phone] | +--------+--------+ + + + + Reason for Visit + + + | Reason | Comments | + + + | Pre-Admission | | + + + Encounter Details +--------+ + + + + | Date | Type | Department | Care Team | Description | +--------+ + + + + | 04/17/ | PreAdmit | Pediatric | Chandrika Owen MD | Pre-Admission | | 2015 | Orders | Gastroenterology at | [address] | | | | | [address] | [address] [place], | | | | | [facility] | [place] [address] | | | | | [address] [place] | [phone] | | | | | Doercatyechmaninder | | | | | | [facility], | | | | | | 7th floor | | | | | | [place], [place] | | | | | | [address] | | | | | | [phone] | | | +--------+ + + + [...] filedocumented as of this encounter Visit Diagnoses + + | Diagnosis | + + | Abdominal pain, epigastric - Primary | + + documented in this encounter"
--- OUTSIDE RECORDS SUMMARY | ~2020-01-18 | XMS | Clinical Summary ---
Demographics + + + | Address | [address] | | | [place] [address] | + + + | Home Phone [...] Author + + + | Author | [facility] | + + + | Organization | [facility] | + + + | [...] Team Providers + +------+ + | Care Planer Operator / Grader Name | Role | Phone | + +------+ + | Rich Valenzuela MD | PCP | | + +------+ + Source Comments SORAYA is fully live on both EpicCare Ambulatory and EpicCare InPatient.[facility] Allergies + + + + [...] | BCBS | xxxxxxxxxxx | 07/11/19 | [phone] | [address] | PPO | | SHIELD | OUT OF | xxx | 14-Pre | 8 | 1106 | | | | STATE | | sent | | [place], | | | | | | | | [place] | | | | | | | | [address] | | + +--------+ +--------+ + +--------+ | MEDICAID [place] | OHP | xxxxxxxx | 12/16/19 | [phone] | [address] | Medica | | | PLUS | | 14-Pre | 6 | [address] | id | | | OPEN | | sent | | [place], [place] | | | | CARD | | | | [phone] | | + +--------+ +--------+ + +--------+ [...] padmini | | | 6 (Home) | [id number] | + +--------+ +--------+ + +
--- OUTSIDE RECORDS SUMMARY | ~2020-01-18 | XMS | Encounter Summary ---
Demographics + + + | Address | [address] | | | [place] [address] | + + + | Home Phone | | + + + | Preferred Language | Unknown | + + + | Marital Status | Single | + + + | Temple Affiliation | NRP | + + + | Race | White | + + + | Ethnic Group | Not or | + + + Author + + + | Author | [facility] | + + + | Organization | [facility] | + + + | [...] Team Providers + +------+ + | Care Counseling Department Chair Name | Role | Phone | + [...] on | Gastroenterology at | [address] [facility] | (PA submitted for | | | | Carl | [address] [place], | Miralax and | | | | [facility] | [place] [address] | ranitidine) | | | | [address] | [phone] | | | | | Carl | | | | | | [facility], | | | | | | [address] [place] [address] | | | | | | [place], [place] | | | | | | [address] | | | | | | [phone] | | | +--------+ + + + [...]
--- OUTSIDE RECORDS SUMMARY | ~2020-01-18 | XMS | Encounter Summary ---
Demographics + + + | Address | [address] | | | [place] [address] | + + + | Home Phone | | + + + | Preferred Language | Unknown | + + + | Marital Status | Single | + + + | Islam Affiliation | NRP | + + + | Race | White | + + + | Ethnic Group | Not or | + + + Author + + + | Author | [facility] | + + + | Organization | [facility] | + + + | Address | [...] Team Providers + +------+ + | Care Piccoloist Name | Role | Phone | + [...] | | | | Hosp-Lobby Admitting | [place], [place] | | | | | Desk Once | [address] | | | | | admitted, go to the | [phone] | | | | | 8th floor Surgical | | | | | | Desk Located at the | | | | | | [place] [address] | | | | | | [address] [place], | | | | | | [place] [address] | | | +--------+ + + + [...]
--- OUTSIDE RECORDS SUMMARY | ~2020-01-18 | XMS | Encounter Summary ---
Demographics + + + | Address | [address] | | | [place] [address] | + + + | Home Phone | | + + + | Preferred Language | Unknown | + + + | Marital Status | Single | + + + | Anabaptist Affiliation | NRP | + + + | Race | White | + + + | Ethnic Group | Not or | + + + Author + + + | Author | [facility] | + + + | Organization | [facility] | + + + | Address [...] Team Providers + +------+ + | Care Laminating Machine Tender Name | Role | Phone | + [...] | | | Carl | [address] [place], | | | | | [facility] | [place] [address] | | | | | [address] [facility] | [phone] | | | | | Carl | | | | | | [facility], | | | | | | [address] [place] [address] | | | | | | [place], [place] | | | | | | [address] | | | | | | [phone] | | | +--------+ + + + [...]
--- OUTSIDE RECORDS SUMMARY | ~2020-01-18 | XMS | Encounter Summary ---
Demographics + + + | Address | [address] | | | [place] [address] | + + + | Home Phone | | + + + | Preferred Language | Unknown | + + + | Marital Status | Single | + + + | Sabianism Affiliation | NRP | + + + [...] Team Providers + +------+ + | Care Electrical Design Technologist Name | Role | Phone | + [...] | ogy | pain, | [address] [facility] | [place] | | | | | epigastric | [place] | Carl | | | | | Procedures | Yeimi Doe | Children's | | | | | REQUEST TO | [place], [place] | [address] | | | | | SURGERY | [address] | floor | | | | | EPIDEMIOLOGY INVESTIGATOR | Phone: | [place], [place] | | | | | DE UPPER GI | [phone] | [address] | | | | | ENDOSCOPY,BI | Fax: | Phone: | | | | | OPSY | [phone] | [phone] | | | | | | | Fax: | | | | | | | [phone] | +--------+--------+ + + + + Reason [...] | | | [address] | [address] [place], | | | | | [facility] | [place] [address] | | | | | [address] [place] | [phone] | | | | | Doercatyechmaninder | | | | | | [facility], | | | | | | 7th floor | | | | | | [place], [place] | | | | | | [address] | | | | | | [phone] | | | +--------+ + + + [...]
--- OUTSIDE RECORDS SUMMARY | ~2020-01-18 | XMS | Encounter Summary ---
Demographics + + + | Address | [address] | | | [place] [address] | + + + | Home Phone | | + + + | Preferred Language | Unknown | + + + | Marital Status | Single | + + + | Mandaen Affiliation | NRP | + + + | Race | White | + + + | Ethnic Group | Not or | + + + Author + + + | Author | [facility] | + + + | Organization | [facility] | + + + | Address [...] Team Providers + +------+ + | Care Accounts Payable Or Receivable Clerk Name | Role | Phone | + +------+ + | Rich Valenzuela MD | PCP | | + +------+ + Reason for Visit + + + | Reason | Comments | + + + | Update On Condition | cont'd stomach pain | + + + Encounter Details +--------+ + + + + | Date | Type | Department | Care Team | Description | +--------+ + + + + | 04/17/ | Telephone | Pediatric | Chandrika Owen MD | Update On Condition | | 2015 | | Gastroenterology at | [address] [facility] | (cont'd stomach | | | | Carl | [address] [place], | pain) | | | | [facility] | [place] [address] | | | | | [address] | [phone] | | | | | Carl | | | | | | [facility], | | | | | | [address] [place] [address] | | | | | | [place], [place] | | | | | | [address] | | | | | | [phone] | | | +--------+ + + + [...]
--- OUTSIDE RECORDS SUMMARY | ~2020-01-18 | XMS | Clinical Summary ---
Demographics + + + | Address | [address] | | | [place] [address] | + + + | Home Phone | | + + + | Preferred Language | Unknown | + + + | Marital Status | Single | + + + | Muslim Affiliation | NRP | + + + | Race | White | + + + | Ethnic Group | Not or | + + + Author + + + | Author | [facility] | + + + | Organization | [facility] | + + + | [...] Team Providers + +------+ + | Care Material Movers Name | Role | Phone | + +------+ + | Rich Valenzuela MD | PCP | | + +------+ + Source Comments SORAYA is fully live on both EpicCare Ambulatory and EpicCare InPatient.[facility] Allergies + + + + + + [...] | BCBS | xxxxxxxxxxx | 07/11/19 | [phone] | [address] | PPO | | SHIELD | OUT OF | xxx | 14-Pre | 8 | 1106 | | | | STATE | | sent | | [place], | | | | | | | | [place] | | | | | | | | [address] | | + +--------+ +--------+ + +--------+ | MEDICAID [place] | OHP | xxxxxxxx | 12/16/19 | [phone] | [address] | Medica | | | PLUS | | 14-Pre | 6 | [address] | id | | | OPEN | | sent | | [place], [place] | | | | CARD | | | | [phone] | | + +--------+ +--------+ + +--------+ [...] | | 1952 | [phone] | [address] [place] | | | padmini | | | 6 (Home) | [id number] | + +--------+ +--------+ + +
--- OUTSIDE RECORDS SUMMARY | ~2020-01-18 | XMS | Encounter Summary ---
Demographics + + + | Address | [address] | | | [place] [address] | + + + | Home Phone [...] + + + | Author | [facility] | + + + | Organization | [facility] | + + + | Address [...] Team Providers + +------+ + | Care Compliance Advisor Name | Role | Phone | + [...] | | Gastroenterology at | [address] [facility] | scheduling) | | | | [address] | [address] [place], | | | | | [facility] | [place] [address] | | | | | [address] [facility] | [phone] | | | | | Carl | | | | | | [facility], | | | | | | 7th floor | | | | | | [place], [place] | | | | | | [address] | | | | | | [phone] | | | +--------+ + + + [...]
--- OUTSIDE RECORDS SUMMARY | ~2020-01-18 | XMS | Encounter Summary ---
Demographics + + + | Address | [address] | | | [place] [address] | + + + | Home Phone | | + + + | Preferred Language | Unknown | + + + | Marital Status | Single | + + + | Mosque Affiliation | NRP | + + + | Race | White | + + + | Ethnic Group | Not or | + + + Author + + + | Author | [facility] | + + + | Organization | [facility] | + + + | Address [...] Team Providers + +------+ + | Care Manager Combination Name | Role | Phone | + [...] Gastroenterology at | [address] [facility] | (cont'd stomach | | | | Carl | [address] [place], | pain) | | | | [facility] | [place] [address] | | | | | [address] | [phone] | | | | | Carl | | | | | | [facility], | | | | | | [address] [place] [address] | | | | | | [place], [place] | | | | | | [address] | | | | | | [phone] | | | +--------+ + + + [...]
--- OUTSIDE RECORDS SUMMARY | ~2020-01-18 | XMS | Encounter Summary ---
Demographics + + + | Address | [address] | | | [place] [address] | + + + | Home Phone [...] Team Providers + +------+ + | Care Chief Nuclear Medicine Technologist Name | Role | Phone | [...] + + | 05/01/ | Hospital | [facility] [address] | Chandrika Owen MD | | | 2015 | Encounter | [address] | [address] | | | | | [id number] | Yeimi Doe [facility] | | | | | [facility] | [place] [address] | | | | | [facility] | [phone] | | | | | [place], [place] [facility] | | | | | | [phone] | | | +--------+ + + + [...]
--- OUTSIDE RECORDS SUMMARY | ~2020-01-18 | XMS | Encounter Summary ---
Demographics + + + | Address | [address] | | | [place] [address] | + + + | Home Phone | | + + + | Preferred Language | Unknown | + + + | Marital Status | Single | + + + | Congregation Affiliation | NRP | + + + | Race | White | + + + | Ethnic Group | Not or | + + + Author + + + | Author | [facility] | + + + | Organization | [facility] | + + + | Address [...] Team Providers + +------+ + | Care Class A Regional Drivers Name | Role | Phone | + [...] | | epigastric | | | | [facility] | | | | | | [address] [facility] | | | | | | Carl | | | | | | [facility] | | | | | | 7th [facility], | | | | | | [place] [address] | | | | | | [phone] | | | +--------+------+ + + + [...] [facility] | [address] | [place] [address] | | | JOHN YING | LENORE [...] [facility] | [address] | [place] [address] | | | SERVICES, CORE | PARK [...] | + + + + + | [facility] | [address] | [place] [address] | | | SERVICES, CORE | LENORE [...] [facility] | [address] | [place] [address] | | | SERVICES, CORE | PARK [...] | + + + + + | [place] [facility] | [address] [facility] | [place] [address] | | | SERVICES, CORE | PARK [...] | | | | | or less: [id number] | | | | | | Units: Weak [id number] | | | | | | Units [...] by | | | | | | Huan Xiong,[address] | | | | | | Sachin Gutierrez [facility],[place] | | | | | | [address] | | | | | | [phone]. | | | | | | Robb [...] [facility] | [address] | [place], [place] | | | [facility] | | [address] | | + + + + + [...] + | [facility] | [address] | [place] [address] | | | [place] | | | | + + + + + documented in this encounter Visit Diagnoses + + | Diagnosis | + + | Abdominal pain, epigastric | + + documented in this encounter"
[~2020-01-18 22:04] MED LIST: RISPERIDONE2 MG PO; SERTRALINE HCL50 MG PO
--- OUTSIDE RECORDS SUMMARY | 2020-01-18 22:08 | XMS ---
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 Minerva has no Care Guidelines for this patient. Sandy VISIT COUNT (12 MO.) 2 [facility] Mar[place] H. TOTAL 2 NOTE: Visits indicate total known visits. ED/[facility] VISIT TRACKING (12 MO.) 01/18/2020 22:04 [facility] [place] TYPE: Emergency COMPLAINT: - FLANK PAIN 01/07/2020 17:05 [facility] TYPE: Emergency COMPLAINT: - ABD PAIN, SWEATING DIAGNOSES: - Unspecified abdominal pain INPATIENT VISIT TRACKING (12 MO.) No inpatient visits to display in this time frame [email or web address]
== END 2020-01-19 00:18 | disposition home or self-care (01) ==
LOC: ED 22:04
DX: R10.31 Right lower quadrant pain (principal); F17.200 Nicotine dependence, unspecified, uncomplicated
CPT/HCPCS: 80053; 81001; 83690; 85025; 99284

== ENCOUNTER 2020-10-27 19:48 | Emergency (ER) | payer OTHER ==
[~2020-10-27] VITALS: Ht 165.1 cm; Wt 45.0 kg
== END 2020-10-27 23:48 | disposition home or self-care (01) ==
LOC: ED 19:48
DX: R10.9 Unspecified abdominal pain (principal); F17.200 Nicotine dependence, unspecified, uncomplicated; Z20.822 Contact with and (suspected) exposure to COVID-19
CPT/HCPCS: 74177; 80053; 81001; 83690; 85025; 96374; 99284-25; C9803; J2405; Q9967; U0003

== ENCOUNTER 2022-04-22 11:46 | Emergency (ER) | payer OTHER ==
[~2022-04-22] VITALS: Ht 165.1 cm; Wt 44.9 kg
[2022-04-22] MEDS ORDERED: KEPPRA500 MG PO (15:52)
== END 2022-04-22 16:41 | disposition home or self-care (01) ==
LOC: ED 11:46
DX: R56.9 Unspecified convulsions (principal); F17.200 Nicotine dependence, unspecified, uncomplicated
CPT/HCPCS: 36415; 70450; 80053; 85025; 96374; 96375; 99285-25; A9270; G0480; J1953; J2060; J7040

== ENCOUNTER 2022-11-11 10:52 | Emergency (ER) | payer OTHER ==
[~2022-11-11] VITALS: Ht 165.1 cm; Wt 45.0 kg
[~2022-11-11 10:52] MED LIST changes: +KEPPRA500 MG PO
[2022-11-11] MEDS ORDERED: KEPPRA500 MG PO (14:07)
[2022-11-11 14:34] VITALS: BP 109/76
== END 2022-11-11 14:34 | disposition home or self-care (01) ==
LOC: ED 10:52
DX: G40.909 Epilepsy, unspecified, not intractable, without status epilepticus (principal); F17.200 Nicotine dependence, unspecified, uncomplicated
CPT/HCPCS: J1953

== ENCOUNTER 2022-11-21 10:05 | Emergency (ER) | payer OTHER ==
[~2022-11-21] VITALS: Ht 165.1 cm; Wt 50.2 kg
[~2022-11-21 10:05] MED LIST changes: +CARBAMAZEPINE100 M2 PO
--- OUTSIDE RECORDS SUMMARY | 2022-11-21 10:16 | XMS ---
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 Minerva has no Care Guidelines for this patient. [place] VISIT COUNT (12 MO.) 4 [facility] TOTAL 4 NOTE: Visits indicate total known visits. ED/[facility] VISIT TRACKING (12 MO.) 11/21/2022 10:08 [facility] [place] TYPE: Emergency COMPLAINT: - SEIZURE 11/21/2022 04:59 [facility] [place] TYPE: Emergency COMPLAINT: - SEIZURE 11/11/2022 10:52 [facility] [place] TYPE: Emergency COMPLAINT: - SEIZURE DIAGNOSES: - Epilepsy, unspecified, not intractable, without status epilepticus - Nicotine dependence, unspecified, uncomplicated - Unspecified convulsions 04/22/2022 11:46 [facility] [place] [place] TYPE: Emergency COMPLAINT: - SEIZURE DIAGNOSES: - Nicotine dependence, unspecified, uncomplicated - Unspecified convulsions INPATIENT VISIT TRACKING (12 MO.) No inpatient visits to display in this time frame [email or web address]
[2022-11-21] MEDS ORDERED: CARBAMAZEPINE200 M2 PO (11:12)
[2022-11-21] MEDS ORDERED: DIASTAT ACUDIAL1 EA PR (11:16)
[2022-11-21 11:50] VITALS: BP 95/51
== END 2022-11-21 11:50 | disposition home or self-care (01) ==
LOC: ED 10:05
DX: R56.9 Unspecified convulsions (principal); F17.200 Nicotine dependence, unspecified, uncomplicated; Z79.899 Other long term (current) drug therapy
CPT/HCPCS: 36415; 80053; 80156; 85025; J2060; J7121

== ENCOUNTER 2023-08-14 08:57 | Emergency (ER) | payer OTHER ==
[~2023-08-14] VITALS: Ht 165.1 cm; Wt 49.8 kg
[~2023-08-14 08:57] MED LIST changes: +CARBAMAZEPINE200 M2 PO; +CARBAMAZEPINE300 MG PO; +DIASTAT ACUDIAL1 EA PR
--- OUTSIDE RECORDS SUMMARY | 2023-08-14 09:01 | XMS ---
PreManage Notification: ZAID SWAIN Security Program Director/Music Director Events 1 event(s) in the past 18 months Most recent security events: Elopement at [facility] 03/25/2023 14:03 - Patient eloped with IV in place. - Patient eloped before treatment completed. - Patient with suicidal and/or homicidal ideations eloped. Details: Patient LWBS CRITERIA MET - [facility] CARE PROVIDERS Z[facility] Current PHONE: Unknown Minerva has no Care Guidelines for this patient. [place] VISIT COUNT (12 MO.) 7 [facility] TOTAL 7 NOTE: Visits indicate total known visits. ED/UCC VISIT TRACKING (12 MO.) 08/14/2023 08:57 [facility] [place] TYPE: Emergency COMPLAINT: - SEIZURE 03/30/2023 12:21 [facility] [place] [place] TYPE: Emergency COMPLAINT: - SEIZURE DIAGNOSES: - Cervicalgia - Epilepsy, unspecified, not intractable, without status epilepticus - Headache, unspecified - Nicotine dependence, unspecified, uncomplicated - Unspecified convulsions 03/25/2023 14:03 [facility] [place] [place] TYPE: Emergency COMPLAINT: - L LOWER JAW PAIN 02/04/2023 08:27 [facility] [place] TYPE: Emergency COMPLAINT: - SEIZURE, ALTERED LEVEL CONSCIOUSNESS DIAGNOSES: - Epilepsy, unspecified, not intractable, without status epilepticus - Nicotine dependence, unspecified, uncomplicated - Other medical terminologist (current) drug therapy - Unspecified convulsions 11/21/2022 10:08 [facility] [place] [place] TYPE: Emergency COMPLAINT: - SEIZURE DIAGNOSES: - Nicotine dependence, unspecified, uncomplicated - Other assisted (current) drug therapy - Unspecified convulsions 11/21/2022 04:[address] [facility] [place] [facility] [place] TYPE: Emergency COMPLAINT: - SEIZURE DIAGNOSES: - Epilepsy, unspecified, not intractable, without status epilepticus - Nicotine dependence, unspecified, uncomplicated - Other medical terminologist (current) drug therapy - Schizophrenia, unspecified - Unspecified convulsions 11/11/2022 10:52 [facility] [place] TYPE: Emergency COMPLAINT: - SEIZURE DIAGNOSES: - Epilepsy, unspecified, not intractable, without status epilepticus - Nicotine dependence, unspecified, uncomplicated - Unspecified convulsions INPATIENT VISIT TRACKING (12 MO.) No inpatient visits to display in this time frame [email or web address]
[2023-08-14 09:08] LABS: HEMOGLOBIN 14.7 g/dL (12.0-18.0); MCH 31.4 (27-36); MCHC 33.3 g/dl (30-36); MCV 94.2 fl (81-99); PLATELET COUNT 297 K/uL (140-440); RBC 4.68 M/ul (4.3-5.7); RDW 13.6 (10.5-15.0)
[2023-08-14] MEDS ORDERED: DIVALPROEX SOD500 M1 PO (09:21)
[2023-08-14 09:24] LABS: ALBUMIN 4.2 g/dL (3.4-5.0); ALBUMIN/GLOBULIN RATIO 1.05 (1.1-2.4); ALKALINE PHOSPHATASE 95 U/L (46-116); ALT (SGPT) 28 U/L (14-59); ANION GAP 26.6 (7-21); AST (SGOT) 24 U/L (15-37); BILIRUBIN, TOTAL 0.3 ng/dL (0.2-1.0); CARBAMAZEPINE (TEGRETOL) 0.1 ug/mL (4.0-12.0); CARBON DIOXIDE 16 mmol/L (21-32); CHLORIDE 100 mmol/L (98-107); GLOMERULAR FILTRATION RATE,EST 79 mL/min (>60); POTASSIUM 3.6 mmol/L (3.5-5.1); PROTEIN, TOTAL 8.2 g/dL (6.4-8.2); UREA NITROGEN 16 mg/dL (7-18); VALPROIC ACID <3 ug/mL (50-100)
[2023-08-14 09:31] LABS: BANDS, MANUAL DIFF 6; LYMPHOCYTES, MANUAL DIFF 32; MONOCYTES, MANUAL DIFF 4; NEUTROPHILS, MANUAL DIFF 58
[2023-08-14] MEDS ORDERED: HYDROCODON-ACE1 EA10 PO (10:03)
[2023-08-14 13:00] VITALS: BP 121/76
--- NOTE | 2023-08-15 17:31 | EKG ---
[facility] [address] [facility] [place] [address] Signed Marked sinus bradycardia with marked sinus arrhythmia Rightward axis Pulmonary disease pattern Incomplete right bundle branch block Abnormal ECG No previous ECGs available Confirmed by BAUTISTA TATE MD ([id number]) on 08/15/2023 5:31:04 PM Electronically Signed By: BAUTISTA TATE 08/15/23 1731 PATIENT NAME: ULISES PARIKHETHANZAID Electrocardiogram DATE OF : [birth year] PHYSICIAN: BAUTISTA TATE REPORT #: [id number] REPORT IS CONFIDENTIAL AND NOT TO BE RELEASED WITHOUT AUTHORIZATION
== END 2023-08-14 13:05 | disposition home or self-care (01) ==
LOC: ED 08:57
PROVIDERS: Emergency Medicine
DX: G40.909 Epilepsy, unspecified, not intractable, without status epilepticus (principal); Z91.148 Patient's other noncompliance with medication regimen for other reason; R00.1 Bradycardia, unspecified; F20.9 Schizophrenia, unspecified; F17.200 Nicotine dependence, unspecified, uncomplicated; Z79.899 Other long term (current) drug therapy
CPT/HCPCS: 36415; 80053; 80156; 80164; 85025; 93005; 93010; J2060; J2405

== ENCOUNTER 2024-02-03 13:27 | Emergency (ER) | payer OTHER ==
[~2024-02-03] VITALS: Ht 165.1 cm; Wt 45.6 kg
[~2024-02-03 13:27] MED LIST changes: +DIVALPROEX SOD500 M1 PO; +HYDROCODON-ACE1 EA10 PO
--- OUTSIDE RECORDS SUMMARY | 2024-02-03 13:28 | XMS ---
PreManage Notification: ZAID SWAIN Security Rn Psych Events 1 event(s) in the past 18 months Most recent security events: Elopement at [facility] 03/25/2023 14:03 - Patient eloped with IV in place. - Patient eloped before treatment completed. - Patient with suicidal and/or homicidal ideations eloped. Details: Patient LWBS CRITERIA MET - [facility] - 2 Visits in 30 Days CARE PROVIDERS ZITA [facility] Current PHONE: Unknown Minerva has no Care Guidelines for this patient. [place] VISIT COUNT (12 MO.) 6 [facility] TOTAL 6 NOTE: Visits indicate total known visits. ED/UCC VISIT TRACKING (12 MO.) 02/03/2024 13:28 [facility] [place] TYPE: Emergency COMPLAINT: - SEIZURE 02/03/2024 12:07 [facility] [place] TYPE: Emergency COMPLAINT: - SEIZURE 08/14/2023 08:57 [facility] [place] [place] TYPE: Emergency COMPLAINT: - SEIZURE DIAGNOSES: - Bradycardia, unspecified - Epilepsy, unspecified, not intractable, without status epilepticus - Nicotine dependence, unspecified, uncomplicated - Other longterm (current) drug therapy - Schizophrenia, unspecified - Unspecified convulsions - PATIENT'S OTHER NONCOMPL WITH MEDS REGIMEN FOR OTH 03/30/2023 12:21 [facility] [place] TYPE: Emergency COMPLAINT: - SEIZURE DIAGNOSES: - Cervicalgia - Epilepsy, unspecified, not intractable, without status epilepticus - Headache, unspecified - Nicotine dependence, unspecified, uncomplicated - Unspecified convulsions 03/25/2023 14:03 [facility] [place] [place] TYPE: Emergency COMPLAINT: - L LOWER JAW PAIN 02/04/2023 08:27 [facility] [place] TYPE: Emergency COMPLAINT: - SEIZURE, ALTERED LEVEL CONSCIOUSNESS DIAGNOSES: - Epilepsy, unspecified, not intractable, without status epilepticus - Nicotine dependence, unspecified, uncomplicated - Other computer terminal operator (current) drug therapy - Unspecified convulsions INPATIENT VISIT TRACKING (12 MO.) No inpatient visits to display in this time frame [id number]
[2024-02-03 13:39] LABS: HEMOGLOBIN 15.3 g/dL (12.0-18.0); MCHC 31.8 g/dl (30-36); MCV 97.5 fl (81-99); PLATELET COUNT 278 K/uL (140-440); RBC 4.92 M/ul (4.3-5.7); RDW 13.5 (10.5-15.0)
[2024-02-03] MEDS ORDERED: SODIUM CHLORIDE 0.9% 500 ML IV ONE (13:45)
[2024-02-03] MEDS ORDERED: LORazepam 2 MG/ML VIAL IV ONE (13:45)
[2024-02-03 13:57] LABS: ALBUMIN 4.9 g/dL (3.4-5.0); ALBUMIN/GLOBULIN RATIO 1.23 (1.1-2.4); ALCOHOL, MEDICAL <3 ng/dL (<3); ALKALINE PHOSPHATASE 124 U/L (46-116); ALT (SGPT) 25 U/L (14-59); AST (SGOT) 25 U/L (15-37); BILIRUBIN, TOTAL 0.2 ng/dL (0.2-1.0); BUN/CREATININE RATIO 8.13 (6.0-28.6); CALCIUM 9.4 mg/dL (8.5-10.1); CARBAMAZEPINE (TEGRETOL) 3.1 ug/mL (4.0-12.0); CHLORIDE 101 mmol/L (98-107); CREATININE, SERUM 1.72 mg/dL (0.70-1.30); GLOMERULAR FILTRATION RATE,EST 56 mL/min (>60); POTASSIUM 3.5 mmol/L (3.5-5.1); PROTEIN, TOTAL 8.9 g/dL (6.4-8.2); UREA NITROGEN 14 mg/dL (7-18)
[2024-02-03 14:00] LABS: ANION GAP 33.5 (7-21); CARBON DIOXIDE 9 mmol/L (21-32)
[2024-02-03 14:01] LABS: LYMPHOCYTES, MANUAL DIFF 19; MONOCYTES, MANUAL DIFF 5; NEUTROPHILS, MANUAL DIFF 76
[2024-02-03 14:12] LABS: VALPROIC ACID <3 ug/mL (50-100)
[2024-02-03] MEDS ORDERED: carBAMazepine 200 MG TAB PO ONE (14:15)
[2024-02-03 16:52] LABS: BILIRUBIN, URINE NEGATIVE (negative); BLOOD/HGB, URINE MODERATE (Negative); KETONE, URINE NEGATIVE (Negative); LEUK ESTERASE, URINE NEGATIVE (negative); NITRITE, URINE NEGATIVE (negative)
[2024-02-03 17:02] LABS: EPITHELIAL CELLS, URINE 0 /lpf (0-1+)
[2024-02-03 17:03] LABS: WHITE BLOOD CELLS, URINE 0-1 /HPF (0-5)
[2024-02-03 17:04] LABS: BACTERIA, URINE NONE SEEN /hpf (negative)
[2024-02-03 17:10] LABS: CASTS, URINE NONE SEEN \\lpf; COLLECTION TYPE, URINE CLEAN CATCH; CRYSTALS, URINE URIC ACID 3+ (0-1+)
[2024-02-03 17:11] LABS: AMPHETAMINES, URINE NEGATIVE (NEGATIVE); BARBITURATES, URINE NEGATIVE (NEGATIVE); BENZODIAZEPINE, URINE NEGATIVE (NEGATIVE); BUPRENORPHINE, URINE NEGATIVE (NEGATIVE); CANNABINOID, URINE POSITIVE (NEGATIVE); COCAINE, URINE NEGATIVE (NEGATIVE); ECSTASY, URINE NEGATIVE (NEGATIVE); FENTANYL, URINE NEGATIVE (NEGATIVE); METHADONE, URINE NEGATIVE (NEGATIVE); OPIATES, URINE NEGATIVE (NEGATIVE); OXYCODONE, URINE NEGATIVE (NEGATIVE); PHENCYCLIDINE, URINE NEGATIVE (NEGATIVE); REFLEX CULTURE, URINE No (No)
[2024-02-03 18:55] VITALS: BP 120/71
== END 2024-02-03 18:55 | disposition home or self-care (01) ==
LOC: ED 13:27
PROVIDERS: Emergency Medicine
DX: G40.909 Epilepsy, unspecified, not intractable, without status epilepticus (principal); F17.200 Nicotine dependence, unspecified, uncomplicated; Z79.899 Other long term (current) drug therapy
CPT/HCPCS: 36415; 80053; 80156; 80164; 80307; 81001; 85025; 96374; 99284; G0480; J2060; J7040

== ENCOUNTER 2024-08-13 14:17 | Emergency (ER) | payer OTHER ==
[~2024-08-13] VITALS: Ht 165.1 cm; Wt 49.0 kg
[2024-08-13] MEDS ORDERED: ondansetron HCL 4 MG/2 ML VIAL IV ONE (14:30)
[2024-08-13 14:36] LABS: MCH 30.8 (27-36); MCHC 32.9 g/dl (30-36); MCV 93.5 fl (81-99)
[2024-08-13 14:37] LABS: HEMATOCRIT 45.8 % (35.0-50.0); HEMOGLOBIN 15.1 g/dL (12.0-18.0); PLATELET COUNT 319 K/uL (140-440); RBC 4.89 M/ul (4.3-5.7); RDW 12.9 (10.5-15.0)
[2024-08-13] MEDS ORDERED: carBAMazepine 200 MG TAB PO ONE (14:45)
[2024-08-13 14:46] LABS: ALBUMIN 4.6 g/dL (3.4-5.0); ALBUMIN/GLOBULIN RATIO 1.24 (1.1-2.4); ALCOHOL, MEDICAL <3 ng/dL (<3); ALKALINE PHOSPHATASE 98 U/L (46-116); ALT (SGPT) 31 U/L (14-59); AST (SGOT) 28 U/L (15-37); BILIRUBIN, TOTAL 0.1 ng/dL (0.2-1.0); BUN/CREATININE RATIO 13.53 (6.0-28.6); CALCIUM 9.3 mg/dL (8.5-10.1); CARBAMAZEPINE (TEGRETOL) 0.1 ug/mL (4.0-12.0); CARBON DIOXIDE 17 mmol/L (21-32); CHLORIDE 104 mmol/L (98-107); CREATININE, SERUM 1.33 mg/dL (0.70-1.30); GLOMERULAR FILTRATION RATE,EST 77 mL/min (>60); PROTEIN, TOTAL 8.3 g/dL (6.4-8.2); UREA NITROGEN 18 mg/dL (7-18)
[2024-08-13 14:53] LABS: BANDS, MANUAL DIFF 7; LYMPHOCYTES, MANUAL DIFF 12; MONOCYTES, MANUAL DIFF 11; NEUTROPHILS, MANUAL DIFF 70
[2024-08-13] MEDS ORDERED: SODIUM CHLORIDE 0.9% 1,000 ML IV PRN (16:00)
[2024-08-13 17:21] LABS: HEMATOCRIT 39.6 % (35.0-50.0); HEMOGLOBIN 13.3 g/dL (12.0-18.0); MCH 30.8 (27-36); MCHC 33.7 g/dl (30-36); MCV 91.7 fl (81-99); PLATELET COUNT 244 K/uL (140-440); RBC 4.32 M/ul (4.3-5.7); RDW 12.9 (10.5-15.0)
[2024-08-13 17:35] LABS: BANDS, MANUAL DIFF 3; LYMPHOCYTES, MANUAL DIFF 8; MONOCYTES, MANUAL DIFF 5; NEUTROPHILS, MANUAL DIFF 84
[2024-08-13 17:38] LABS: ANION GAP 14.2 (7-21); BUN/CREATININE RATIO 17.05 (6.0-28.6); CALCIUM 8.5 mg/dL (8.5-10.1); CREATININE, SERUM 1.29 mg/dL (0.70-1.30); POTASSIUM 4.2 mmol/L (3.5-5.1)
[2024-08-13 17:42] LABS: LACTIC ACID, BLOOD 1.1 mmol/L (0.4-2.0)
[2024-08-13] MEDS ORDERED: CARBATROL300 MG PO (18:22)
[2024-08-13] MEDS ORDERED: ONDANSETRON 4 MG HOME.PACK SL ONE (19:00)
[2024-08-13 19:15] VITALS: BP 138/81
== END 2024-08-13 18:45 | disposition home or self-care (01) ==
LOC: ED 14:17
PROVIDERS: Emergency Medicine
DX: G40.909 Epilepsy, unspecified, not intractable, without status epilepticus (principal); Z91.148 Patient's other noncompliance with medication regimen for other reason; N17.9 Acute kidney failure, unspecified; D72.829 Elevated white blood cell count, unspecified; F17.200 Nicotine dependence, unspecified, uncomplicated; Z79.899 Other long term (current) drug therapy
CPT/HCPCS: 36415; 80048; 80053; 80156; 83605; 85025; 96374; 99284-25; A9270; G0480; J2405; J7030

== ENCOUNTER 2024-11-09 09:08 | Emergency (ER) | payer OTHER ==
[~2024-11-09] VITALS: Ht 165.1 cm; Wt 50.0 kg
[~2024-11-09 09:08] MED LIST changes: +CARBATROL300 MG PO
[2024-11-09 10:54] VITALS: BP 124/96
== END 2024-11-09 10:56 | disposition home or self-care (01) ==
LOC: ED 09:08
DX: N50.811 Right testicular pain (principal); F17.200 Nicotine dependence, unspecified, uncomplicated; Z79.899 Other long term (current) drug therapy
CPT/HCPCS: 76870; 99284

== ENCOUNTER 2025-05-09 10:24 | Emergency (ER) | payer OTHER ==
[~2025-05-09] VITALS: Ht 165.1 cm; Wt 49.5 kg
[2025-05-09] MEDS ORDERED: SODIUM CHLORIDE 0.9% 1,000 ML IV PRN ×2 (10:45→11:30)
[2025-05-09 10:55] LABS: BASOPHILS 0.6 % (0.2-1.2); EOSINOPHILS 2.0 % (0.8-7.0); LYMPHOCYTES 42.6 % (21.8-53.1); MCH 31.0 PG (25.7-32.2); MCHC 30.8 g/dL (32.3-36.5); MCV 100.6 fL (79.0-92.2); MONOCYTES 8.8 % (5.3-12.2); NEUTROPHILS 43.4 % (34.0-67.9); RBC 5.03 M/uL (4.63-6.08)
[2025-05-09 11:12] LABS: ALT (SGPT) 26 U/L (14-59); AST (SGOT) 25 U/L (15-37); GLOMERULAR FILTRATION RATE,EST 79 mL/min (>60); PROTEIN, TOTAL 8.9 g/dL (6.4-8.2); UREA NITROGEN 22 mg/dL (7-18)
[2025-05-09] MEDS ORDERED: ATROPINE SULFATE 1 MG/10 ML SYR IV ONE (11:45)
[2025-05-09] MEDS ORDERED: SODIUM BICARBONATE 50 MEQ/50 ML SYR IV ONE ×2 (11:45)
[2025-05-09] MEDS ORDERED: NALOXONE HCL 2 MG/2 ML SYR IV ONE (11:45)
[2025-05-09 12:45] LABS: BLOOD/HGB, URINE SMALL (Negative); KETONE, URINE NEGATIVE (Negative); LEUK ESTERASE, URINE NEGATIVE (negative); NITRITE, URINE NEGATIVE (negative)
[2025-05-09 12:57] LABS: GLOMERULAR FILTRATION RATE,EST 131.0 mL/min (>60); UREA NITROGEN 19.0 mg/dL (7-18)
[2025-05-09 12:57] LABS: BACTERIA, URINE NONE SEEN /hpf (negative); CASTS, URINE NONE SEEN \\lpf; CRYSTALS, URINE NONE SEEN (0-1+); EPITHELIAL CELLS, URINE SQUAMOUS 1+ /lpf (0-1+); REFLEX CULTURE, URINE No (No)
[2025-05-09 13:10] LABS: AMPHETAMINES, URINE NEGATIVE (NEGATIVE); BARBITURATES, URINE NEGATIVE (NEGATIVE); BENZODIAZEPINE, URINE POSITIVE (NEGATIVE); CANNABINOID, URINE POSITIVE (NEGATIVE); COCAINE, URINE NEGATIVE (NEGATIVE); ECSTASY, URINE NEGATIVE (NEGATIVE); FENTANYL, URINE NEGATIVE (NEGATIVE); METHADONE, URINE NEGATIVE (NEGATIVE); OPIATES, URINE NEGATIVE (NEGATIVE); OXYCODONE, URINE NEGATIVE (NEGATIVE); PHENCYCLIDINE, URINE NEGATIVE (NEGATIVE)
[2025-05-09] MEDS ORDERED: KEPPRA500 MG PO (14:48)
[2025-05-09 14:49] VITALS: BP 99/64
[2025-05-09] MEDS ORDERED: ACETAMINOPHEN 500 MG TAB PO ONE (15:00)
--- NOTE | 2025-05-10 06:01 | EKG ---
[facility] [address] [facility] [place] [address] Signed Sinus tachycardia Right atrial enlargement Right axis deviation Pulmonary disease pattern Incomplete right bundle branch block Abnormal ECG When compared with ECG of 14-AUG-2023 09:27, Vent. rate has increased BY 77 BPM Confirmed by BAUTISTA TATE MD ([id number]) on 05/10/2025 6:01:19 AM Electronically Signed By: BAUTISTA TATE 05/10/25 0601 PATIENT NAME: ZAID SWAIN Electrocardiogram DATE OF : [birth year] PHYSICIAN: BAUTISTA TATE REPORT #: [id number] REPORT IS CONFIDENTIAL AND NOT TO BE RELEASED WITHOUT AUTHORIZATION
--- NOTE | 2025-05-10 06:02 | EKG ---
[facility] [address] [facility] [place] [address] Signed Normal sinus rhythm Rightward axis Incomplete right bundle branch block Borderline ECG When compared with ECG of 09-MAY-2025 10:51, (Unconfirmed) No significant change was found Confirmed by BAUTISTA TATE MD ([id number] on 05/10/2025 6:02:10 AM Electronically Signed By: BAUTISTA TATE 05/10/25 0602 PATIENT NAME: ZAID SWAIN Electrocardiogram DATE OF : 00 PHYSICIAN: BAUTISTA TATE REPORT #: [id number] REPORT IS CONFIDENTIAL AND NOT TO BE RELEASED WITHOUT AUTHORIZATION
== END 2025-05-09 15:04 | disposition home or self-care (01) ==
LOC: ED 10:24
PROVIDERS: Emergency Medicine
DX: R56.9 Unspecified convulsions (principal); F17.200 Nicotine dependence, unspecified, uncomplicated
CPT/HCPCS: 36415; 70450; 71045; 80048; 80053; 80156; 80307; 81001; 82803; 83605; 85025; 85060; 93005; 93010; 96374; 96375; 96376; 99285-25; A9270; G0480; J0461; J1953; J2312; J2405; J7030